=== PATIENT | female | born 1990 | race Two or more races ===

== ENCOUNTER 2024-01-20 16:31 | Inpatient (IN) | payer MEDICAID, OTHER ==
[~2024-01-20] VITALS: Ht 170.2 cm; Wt 192.5 kg
[2024-01-20 17:10] VITALS: PULSE 101; RESP 29; O2SAT 95
[2024-01-20] MEDS: methylPREDNISolone SOD SUCC 125 MG/2 ML VL IV ONE (17:26)
[2024-01-20] MEDS: cefTRIAXone 1GM/50ML D5W 50 ML IV ONE (17:27)
[2024-01-20 17:30] LABS: Hemoglobin 15.9 g/dL (12.2-16.2)
[2024-01-20] MEDS: ALBUTEROL SULF 2.5 MG/0.5ML(0.5%) NEB SOLN NEB ONE (17:30)
[2024-01-20] MEDS: IPRATROPIUM BROM 0.5 MG/2.5ML INH SOL NEB ONE (17:30)
[2024-01-20 17:32] LABS: Hematocrit 51.3 % (36.0-46.0); Mean Corpuscular Hemoglobin 25.3 pg (28.0-32.0); Mean Corpuscular Hgb Conc. 30.9 g/dL (32.0-36.0); Mean Corpuscular Volume 81.6 fL (80.0-100.0); Red Blood Cells 6.28 10^6/uL (4.0-5.20); Red Cell Distribution Width 16.6 % (11.8-14.3)
[2024-01-20 17:56] LABS: Chloride 99 mmol/L (98-107); Potassium 4.8 mmol/L (3.5-5.1); Sodium 130 mmol/L (136-145)
[2024-01-20 17:58] LABS: Anion Gap 15 (5-15); Carbon Dioxide 16 mmol/L (20-30)
[2024-01-20 17:59] LABS: Calcium 8.7 mg/dL (8.5-10.1)
[2024-01-20 18:03] LABS: Glucose 229 mg/dL (74-106)
[2024-01-20 18:04] LABS: Alkaline Phosphatase 128 U/L (46-116); BUN/Creatinine Ratio 24.3 (10.0-20.0); Blood Urea Nitrogen 37 mg/dL (9-23); Magnesium 2.2 mg/dL (1.6-2.6)
[2024-01-20 18:05] LABS: Alanine Aminotransferase 771 U/L (7-40); Albumin 3.8 g/dL (3.2-4.8)
[2024-01-20 18:06] LABS: Aspartate Aminotransferase 2462 U/L (13-40); Bilirubin, Total 4.7 mg/dL (0.2-1.0); Total Protein 7.4 g/dL (5.7-8.2)
[2024-01-20 18:22] LABS: White Blood Cell 38.9 10^3/uL (4.4-10.8)
[2024-01-20 18:24] LABS: Basophils % (manual) 0 (0.0-2.0); Blast Cells 0; Eosinophils % (manual) 0 (0-7); Promyelocytes % 0; Reactive Lymphocytes 0
[2024-01-20 18:32] LABS: Lactic Acid w/Reflex 4.2 mmol/L (0.4-2.0)
[2024-01-20] MEDS: FUROSEMIDE 40 MG/4 ML VIAL IV ONE (18:48)
[2024-01-20] MEDS: SODIUM CHLORIDE 0.9% 500 ML IV ONE (18:48)
[2024-01-20 19:30] VITALS: PULSE 93; RESP 26; O2SAT 94
[2024-01-20] MEDS: AZITHROMYCIN 250 MG TAB PO ONE (19:32)
[2024-01-20] MEDS: ASPirin 325 MG TAB PO ONE (19:32)
[2024-01-20 19:51] LABS: Base Excess -5.1 mmol/L (-2.0-2.0)
[2024-01-20 20:53] LABS: Lymphocytes % (manual) 17 (10.0-50.0); Metamyelocytes % 3; Monocytes % (manual) 3 (0-12); Myelocytes % 4
[2024-01-20 20:54] LABS: Anisocytosis Slight; Band Neutrophils % (manual) 11; Platelet Estimate Decreased
[2024-01-20 20:55] LABS: Large Platelets FEW
[2024-01-20] MEDS ORDERED: MORPHINE SULFATE INJ 2 MG/ml SYRG IV PRN ×2 (21:00)
[2024-01-20] MEDS ORDERED: ACETAMINOPHEN 325 MG TAB PO PRN (21:00)
[2024-01-20] MEDS ORDERED: ONDANSETRON HCL 4 MG/2 ML VIAL IV PRN (21:00)
[2024-01-20] MEDS ORDERED: DEXTROSE (50%) 50ML SYRG IV PRN (21:00)
[2024-01-20] MEDS ORDERED: NITROGLYCERIN 0.4 MG SL TAB SL PRN (21:00)
[2024-01-20 22:00] VITALS: BP 155/110; PULSE 90; RESP 22; TEMP 97.4; O2SAT 95
[2024-01-20 22:40] VITALS: BP 149/87; PULSE 93; O2SAT 94
[2024-01-20 23:13] LABS: Urine Bacteria FEW /hpf (None Seen); Urine Blood 2+ /uL (Negative); Urine Budding Yeast FEW /hpf (None Seen); Urine Clarity Turbid (Clear); Urine Color Dark-Yellow (Yellow); Urine Hyaline Cast MANY /lpf (0 - 2); Urine Mucus FEW (None Seen); Urine Protein, UAD 3+ (Negative); Urine Specific Gravity 1.021 (1.001-1.035); Urine Urobilinogen 4 mg/dL (Negative); Urine WBC 11 /hpf (0 - 5); Urine pH 5.5 (5.0-9.0)
[2024-01-20] MEDS: methylPREDNISolone SOD SUCC 40 MG/ML VL IV SCH (23:13)
[2024-01-20] MEDS: ACCU-CHEK COMFORT CURVE STRIP VI SCH (23:14)
[2024-01-20] MEDS: InsuLIN REG 1unit/0.01ml Soln (100units/ml) SC SCH (23:15)
[2024-01-20] MEDS: SODIUM CHLORIDE 0.9% 1,000 ML IV SCH (23:15)
[2024-01-21] VITALS (10 sets, daily range): BP systolic 118–135; BP diastolic 76–82; PULSE 73–105; RESP 16–20; O2SAT 92–97
[2024-01-21] MEDS: IPRATROPIUM BROM 0.5 MG/2.5ML INH SOL NEB SCH (00:38)
[2024-01-21] MEDS: ALBUTEROL SULF 2.5 MG/0.5ML(0.5%) NEB SOLN NEB SCH (00:38)
[2024-01-21 06:34] LABS: Hematocrit 49.3 % (36.0-46.0); Red Cell Distribution Width 16.4 % (11.8-14.3)
[2024-01-21 06:36] LABS: Hemoglobin 15.8 g/dL (12.2-16.2); Mean Corpuscular Hemoglobin 25.8 pg (28.0-32.0); Mean Corpuscular Volume 80.7 fL (80.0-100.0); Red Blood Cells 6.11 10^6/uL (4.0-5.20)
[2024-01-21 06:49] LABS: Alanine Aminotransferase 552 U/L (7-40); Alkaline Phosphatase 115 U/L (46-116); Anion Gap 9 (5-15); BUN/Creatinine Ratio 30.1 (10.0-20.0); Blood Urea Nitrogen 34 mg/dL (9-23); Calcium 8.5 mg/dL (8.5-10.1); Carbon Dioxide 24 mmol/L (20-30); Chloride 100 mmol/L (98-107); Glucose 280 mg/dL (74-106); LDL Cholesterol 103 mg/dL (< 100); Potassium 4.8 mmol/L (3.5-5.1); Sodium 133 mmol/L (136-145); Triglycerides 361 mg/dL (< 150)
[2024-01-21 06:50] LABS: Albumin 3.6 g/dL (3.2-4.8); Aspartate Aminotransferase > 1000 U/L (13-40); Bilirubin, Total 2.7 mg/dL (0.2-1.0); Cholesterol 178 mg/dL (< 200); HDL Cholesterol 11 mg/dL (40-59)
[2024-01-21] MEDS: FUROSEMIDE 20 MG/2 ML VIAL IV SCH (06:54)
[2024-01-21 07:43] LABS: White Blood Cell 39.5 10^3/uL (4.4-10.8)
[2024-01-21 07:45] LABS: Basophils % (manual) 0 (0.0-2.0); Blast Cells 0; Eosinophils % (manual) 0 (0-7); Metamyelocytes % 0; Myelocytes % 0; Promyelocytes % 0; Reactive Lymphocytes 0
[2024-01-21] MEDS ORDERED: hydrALAZINE HCL 20 MG/ML VL IV PRN (08:30)
[2024-01-21 08:36] LABS: Band Neutrophils % (manual) 17; Large Platelets FEW; Lymphocytes % (manual) 9 (10.0-50.0); Monocytes % (manual) 5 (0-12)
[2024-01-21 08:38] LABS: Platelet Estimate Decrea
[2024-01-21] MEDS: ENOXAPARIN SOD 40 MG/0.4 ML SYRINGE SC SCH (10:00)
[2024-01-21] MEDS: PANTOPRAZOLE 40 MG/10 ML VIAL INJ IV SCH (11:08)
[2024-01-21] MEDS: ASPirin-EC 81 mg tab PO SCH (11:08)
[2024-01-21] MEDS: IOHEXOL 350 MG/ML 100ML IJ ONE (11:23)
[2024-01-21 13:47] LABS: COVID19 ANTIGEN SOFIA FIA NEGATIVE (NEGATIVE)
[2024-01-21 13:48] LABS: Rapid Influenza A Negative (Negative); Rapid Influenza B Negative (Negative)
[2024-01-21 14:08] LABS: INR 1.47 (0.9-1.15); Partial Thromboplastin Time 23.8 SEC (24.5-34.5); Prothrombin Time 15.1 sec (9.3-11.8)
[2024-01-21] MEDS: HEPARIN DRIP/D5W 100UNITS/ML 250 ML IV SCH ×2 (14:44→23:34)
[2024-01-21] MEDS: DOXYCYCLINE 100MG/250ML 250 ML IV SCH (14:59)
[2024-01-21] MEDS ORDERED: cefTRIAXone 1GM/50ML D5W 50 ML IV SCH (18:00)
[2024-01-21] MEDS ORDERED: AZITHROMYCIN 500MG/ 250ML 250 ML IV SCH (20:00)
[2024-01-21 21:27] LABS: INR 1.43 (0.9-1.15); Partial Thromboplastin Time 29.1 SEC (24.5-34.5); Prothrombin Time 14.8 sec (9.3-11.8)
[2024-01-21] MEDS ORDERED: ATORVASTATIN 20 MG TAB PO SCH (22:00)
[2024-01-21] MEDS: NYSTATIN TOPICAL POWDER 15GM TOP SCH (22:26)
[2024-01-21 22:42] LABS: Base Excess -1.3 mmol/L (-2.0-2.0)
[2024-01-21] MEDS: MEROPENEM 1GM IVPB 50 ML IV SCH (23:13)
[2024-01-21] MEDS: HEPARIN SODIUM (PORCINE) 5000 UNITS/ML 1ML VIAL IV ONE (23:33)
[2024-01-22] VITALS (37 sets, daily range): BP systolic 111–156; BP diastolic 64–106; PULSE 61–89; RESP 10–22; TEMP 97.7–99.6; O2SAT 89–98
[2024-01-22] MEDS: DOXYCYCLINE 100MG/250ML 250 ML IV SCH (02:21)
[2024-01-22] MEDS ORDERED: MEROPENEM 1GM IVPB 50 ML IV SCH (06:00)
[2024-01-22 06:29] LABS: INR 1.4 (0.9-1.15); Partial Thromboplastin Time 36.2 SEC (24.5-34.5); Prothrombin Time 14.5 sec (9.3-11.8)
[2024-01-22] MEDS: MEROPENEM 1GM IVPB 50 ML IV SCH (06:35)
[2024-01-22 08:21] LABS: Hematocrit 45.8 % (36.0-46.0); Hemoglobin 14.2 g/dL (12.2-16.2); Mean Corpuscular Hemoglobin 25.7 pg (28.0-32.0); Mean Corpuscular Hgb Conc. 31.1 g/dL (32.0-36.0); Mean Corpuscular Volume 82.8 fL (80.0-100.0); Red Blood Cells 5.54 10^6/uL (4.0-5.20); Red Cell Distribution Width 17.3 % (11.8-14.3)
[2024-01-22] MEDS: methylPREDNISolone SOD SUCC 40 MG/ML VL IV SCH (08:25)
[2024-01-22 08:26] LABS: Anion Gap 5 (5-15); Carbon Dioxide 28 mmol/L (20-30); Chloride 99 mmol/L (98-107); Potassium 4.8 mmol/L (3.5-5.1); Sodium 132 mmol/L (136-145)
[2024-01-22 08:27] LABS: Calcium 8.6 mg/dL (8.5-10.1)
[2024-01-22 08:32] LABS: BUN/Creatinine Ratio 22.7 (10.0-20.0); Blood Urea Nitrogen 17 mg/dL (9-23); Glucose 321 mg/dL (74-106)
[2024-01-22 08:43] LABS: White Blood Cell 34.6 10^3/uL (4.4-10.8)
[2024-01-22 08:44] LABS: Basophils % (manual) 0 (0.0-2.0); Blast Cells 0; Eosinophils % (manual) 0 (0-7); Metamyelocytes % 0; Myelocytes % 0; Promyelocytes % 0; Reactive Lymphocytes 0
[2024-01-22 09:03] LABS: Hepatitis B Surface Antigen Negative (Negative)
[2024-01-22 09:06] LABS: Band Neutrophils % (manual) 11; Lymphocytes % (manual) 10 (10.0-50.0); Monocytes % (manual) 7 (0-12)
[2024-01-22 09:07] LABS: Platelet Estimate Decreased
[2024-01-22 09:22] LABS: Hepatitis A Ab IgM Negative
[2024-01-22 09:24] LABS: Hepatitis B Core IgM Negative; Hepatitis C Antibody Negative (Negative)
[2024-01-22] MEDS ORDERED: DEXTROSE (50%) 50ML SYRG IV PRN (09:30)
[2024-01-22] MEDS: ACCU-CHEK COMFORT CURVE STRIP VI SCH (11:09)
[2024-01-22] MEDS: InsuLIN REG 1unit/0.01ml Soln (100units/ml) SC SCH (11:38)
[2024-01-22 13:47] LABS: INR 1.3 (0.9-1.15); Partial Thromboplastin Time 44.3 SEC (24.5-34.5); Prothrombin Time 13.5 sec (9.3-11.8)
[2024-01-22] MEDS: HEPARIN DRIP/D5W 100UNITS/ML 250 ML IV SCH ×2 (14:39→16:15)
[2024-01-22] MEDS: ENOXAPARIN SOD 150 MG/1 ML SYRINGE SC SCH (22:06)
[2024-01-23] VITALS (30 sets, daily range): BP systolic 120–153; BP diastolic 46–104; PULSE 59–99; RESP 14–18; TEMP 97.4–98.8; O2SAT 92–98
[2024-01-23 09:02] LABS: Red Cell Distribution Width 16.4 % (11.8-14.3)
[2024-01-23 09:03] LABS: Hematocrit 44.9 % (36.0-46.0); Hemoglobin 14.2 g/dL (12.2-16.2); Mean Corpuscular Hemoglobin 25.8 pg (28.0-32.0); Mean Corpuscular Hgb Conc. 31.6 g/dL (32.0-36.0); Mean Corpuscular Volume 81.6 fL (80.0-100.0); White Blood Cell 25.2 10^3/uL (4.4-10.8)
[2024-01-23 09:10] LABS: Basophils % (manual) 0 (0.0-2.0); Blast Cells 0; Eosinophils % (manual) 0 (0-7); Metamyelocytes % 0; Promyelocytes % 0; Reactive Lymphocytes 0
[2024-01-23 09:50] LABS: Band Neutrophils % (manual) 2; Lymphocytes % (manual) 10 (10.0-50.0); Monocytes % (manual) 4 (0-12); Myelocytes % 1; Platelet Estimate Decreased
[2024-01-23 09:51] LABS: Anisocytosis Slight
[2024-01-23 10:26] LABS: Chloride 99 mmol/L (98-107); Sodium 133 mmol/L (136-145)
[2024-01-23 10:28] LABS: Anion Gap 3 (5-15); Carbon Dioxide 31 mmol/L (20-30)
[2024-01-23 10:29] LABS: Calcium 8.9 mg/dL (8.5-10.1)
[2024-01-23 10:33] LABS: Glucose 237 mg/dL (74-106)
[2024-01-23 10:47] LABS: BUN/Creatinine Ratio 23.8 (10.0-20.0); Blood Urea Nitrogen 15 mg/dL (9-23); Potassium 4.6 mmol/L (3.5-5.1)
[2024-01-23] MEDS: hydrALAZINE HCL 20 MG/ML VL ONE (22:10)
[2024-01-24] VITALS (26 sets, daily range): BP systolic 92–143; BP diastolic 43–94; PULSE 58–87; RESP 13–21; TEMP 97.4–98.4; O2SAT 92–100
[2024-01-24 06:39] LABS: Eosinophils # (auto) 0.3 10 ^3/uL (0-0.8); Lymphocytes % (auto) 17.7 % (10.0-50.0); Nucleated Red Blood Cells % 0.2 %
[2024-01-24 06:43] LABS: Basophils # (auto) 0 10 ^3/uL (0-0.2); Basophils % (auto) 0.2 % (0.0-2.0); Eosinophils % (auto) 1.5 % (0.0-7.0); Hematocrit 45.8 % (36.0-46.0); Hemoglobin 14.5 g/dL (12.2-16.2); Mean Corpuscular Hgb Conc. 31.7 g/dL (32.0-36.0); Mean Corpuscular Volume 81.8 fL (80.0-100.0); Monocytes # (auto) 1.2 10 ^3/uL (0-1.3); Monocytes % (auto) 6.8 % (0.0-12.0); Neutrophils # (auto) 12.6 10 ^3/uL (1.6-8.6); Neutrophils % (auto) 73.8 % (37.0-80.0); Red Cell Distribution Width 16.4 % (11.8-14.3); White Blood Cell 17.1 10^3/uL (4.4-10.8)
[2024-01-24 06:51] LABS: Anion Gap 4 (5-15); Carbon Dioxide 34 mmol/L (20-30); Chloride 99 mmol/L (98-107); Sodium 137 mmol/L (136-145)
[2024-01-24 06:52] LABS: Calcium 8.6 mg/dL (8.5-10.1)
[2024-01-24 06:57] LABS: BUN/Creatinine Ratio 14.8 (10.0-20.0); Blood Urea Nitrogen 9 mg/dL (9-23); Glucose 144 mg/dL (74-106)
[2024-01-25] VITALS (21 sets, daily range): BP systolic 104–153; BP diastolic 53–78; PULSE 63–103; RESP 13–30; TEMP 97.7–99; O2SAT 91–100
[2024-01-25 07:30] LABS: Chloride 104 mmol/L (98-107); Potassium 3.3 mmol/L (3.5-5.1)
[2024-01-25 07:31] LABS: Anion Gap 7 (5-15); Carbon Dioxide 20 mmol/L (20-30)
[2024-01-25 07:48] LABS: Basophils # (auto) 0.1 10 ^3/uL (0-0.2); Basophils % (auto) 0.4 % (0.0-2.0); Eosinophils # (auto) 0.5 10 ^3/uL (0-0.8)
[2024-01-25 07:49] LABS: BUN/Creatinine Ratio 11.4 (10.0-20.0); Blood Urea Nitrogen < 5 mg/dL (9-23); Sodium 131 mmol/L (136-145)
[2024-01-25 07:50] LABS: Glucose 505 mg/dL (74-106)
[2024-01-25 07:50] LABS: Hematocrit 43.9 % (36.0-46.0); Lymphocytes # (auto) 2.5 10 ^3/uL (0.4-5.4); Lymphocytes % (auto) 18.7 % (10.0-50.0); Mean Corpuscular Hemoglobin 26.1 pg (28.0-32.0); Mean Corpuscular Hgb Conc. 31.8 g/dL (32.0-36.0); Monocytes # (auto) 0.6 10 ^3/uL (0-1.3); Monocytes % (auto) 4.9 % (0.0-12.0); Neutrophils # (auto) 9.4 10 ^3/uL (1.6-8.6); Nucleated Red Blood Cells % 0.1 %; Red Blood Cells 5.36 10^6/uL (4.0-5.20); Red Cell Distribution Width 16.3 % (11.8-14.3); White Blood Cell 13.1 10^3/uL (4.4-10.8)
[2024-01-25 15:11] LABS: Alanine Aminotransferase 92 U/L (7-40); Albumin 3.5 g/dL (3.2-4.8); Alkaline Phosphatase 60 U/L (46-116); Anion Gap 3 (5-15); Aspartate Aminotransferase 39 U/L (13-40); BUN/Creatinine Ratio 17.3 (10.0-20.0); Bilirubin, Total 1.5 mg/dL (0.2-1.0); Blood Urea Nitrogen 9 mg/dL (9-23); Calcium 8.8 mg/dL (8.7-10.4); Carbon Dioxide 35 mmol/L (20-30); Chloride 97 mmol/L (98-107); Glucose 165 mg/dL (74-106); Potassium 4.6 mmol/L (3.5-5.1); Sodium 135 mmol/L (136-145); Total Protein 6.5 g/dL (5.7-8.2)
[2024-01-26] VITALS (18 sets, daily range): BP systolic 106–131; BP diastolic 59–77; PULSE 69–87; RESP 16–22; TEMP 97.6–98.4; O2SAT 92–100
[2024-01-26 06:15] LABS: Basophils # (auto) 0.1 10 ^3/uL (0-0.2); Eosinophils # (auto) 1.1 10 ^3/uL (0-0.8); Hemoglobin 14.3 g/dL (12.2-16.2); Lymphocytes # (auto) 2.4 10 ^3/uL (0.4-5.4); Monocytes # (auto) 0.6 10 ^3/uL (0-1.3); Nucleated Red Blood Cells % 0.3 %
[2024-01-26 06:17] LABS: Basophils % (auto) 0.6 % (0.0-2.0); Eosinophils % (auto) 6.6 % (0.0-7.0); Hematocrit 44.4 % (36.0-46.0); Lymphocytes % (auto) 14.6 % (10.0-50.0); Mean Corpuscular Hemoglobin 26.8 pg (28.0-32.0); Mean Corpuscular Hgb Conc. 32.2 g/dL (32.0-36.0); Mean Corpuscular Volume 83.2 fL (80.0-100.0); Monocytes % (auto) 3.9 % (0.0-12.0); Neutrophils # (auto) 12.2 10 ^3/uL (1.6-8.6); Neutrophils % (auto) 74.3 % (37.0-80.0); Red Blood Cells 5.34 10^6/uL (4.0-5.20); Red Cell Distribution Width 17.1 % (11.8-14.3); White Blood Cell 16.4 10^3/uL (4.4-10.8)
[2024-01-26 06:23] LABS: Anion Gap 6 (5-15); Carbon Dioxide 32 mmol/L (20-30); Chloride 97 mmol/L (98-107); Sodium 135 mmol/L (136-145)
[2024-01-26 06:30] LABS: Glucose 124 mg/dL (74-106)
[2024-01-26 06:38] LABS: BUN/Creatinine Ratio 10.9 (10.0-20.0); Blood Urea Nitrogen 6 mg/dL (9-23)
[2024-01-26 07:23] LABS: Large Platelets FEW; Platelet Estimate Adequa
[2024-01-26] MEDS: DOCUSATE SOD 100 MG CAP PO PRN (21:40)
[2024-01-27] VITALS (17 sets, daily range): BP systolic 102–129; BP diastolic 50–76; PULSE 70–108; RESP 16–22; TEMP 97.5–98.6; O2SAT 84–99
[2024-01-27 06:45] LABS: Basophils # (auto) 0.1 10 ^3/uL (0-0.2); Basophils % (auto) 0.3 % (0.0-2.0); Nucleated Red Blood Cells % 0.1 %; Red Cell Distribution Width 16.7 % (11.8-14.3); White Blood Cell 16.2 10^3/uL (4.4-10.8)
[2024-01-27 06:47] LABS: Eosinophils # (auto) 0.7 10 ^3/uL (0-0.8); Eosinophils % (auto) 4.2 % (0.0-7.0); Hematocrit 43.9 % (36.0-46.0); Lymphocytes # (auto) 2.4 10 ^3/uL (0.4-5.4); Lymphocytes % (auto) 14.8 % (10.0-50.0); Mean Corpuscular Hemoglobin 26.3 pg (28.0-32.0); Mean Corpuscular Hgb Conc. 31.8 g/dL (32.0-36.0); Mean Corpuscular Volume 82.5 fL (80.0-100.0); Monocytes # (auto) 0.8 10 ^3/uL (0-1.3); Monocytes % (auto) 5.1 % (0.0-12.0); Neutrophils # (auto) 12.2 10 ^3/uL (1.6-8.6); Neutrophils % (auto) 75.6 % (37.0-80.0); Red Blood Cells 5.32 10^6/uL (4.0-5.20)
[2024-01-27 07:03] LABS: Alanine Aminotransferase 51 U/L (7-40); Anion Gap 3 (5-15); Aspartate Aminotransferase 34 U/L (13-40); Calcium 8.8 mg/dL (8.7-10.4); Carbon Dioxide 34 mmol/L (20-30); Chloride 99 mmol/L (98-107); Glucose 120 mg/dL (74-106); Potassium 4.4 mmol/L (3.5-5.1); Sodium 136 mmol/L (136-145)
[2024-01-27 07:05] LABS: BUN/Creatinine Ratio 11.4 (10.0-20.0); Blood Urea Nitrogen < 5 mg/dL (9-23)
[2024-01-27] MEDS: APIXABAN 5 MG TAB PO SCH (21:59)
[2024-01-27] MEDS: ATORVASTATIN 20 MG TAB PO SCH (22:00)
[2024-01-28] VITALS (14 sets, daily range): BP systolic 100–145; BP diastolic 40–71; PULSE 63–97; RESP 17–22; TEMP 98.2–98.3; O2SAT 91–98
[2024-01-28 06:17] LABS: Basophils # (auto) 0.1 10 ^3/uL (0-0.2); Eosinophils # (auto) 0.6 10 ^3/uL (0-0.8); Eosinophils % (auto) 3.3 % (0.0-7.0); Monocytes # (auto) 0.8 10 ^3/uL (0-1.3); Neutrophils # (auto) 12.9 10 ^3/uL (1.6-8.6)
[2024-01-28 06:21] LABS: Basophils % (auto) 0.6 % (0.0-2.0); Hematocrit 44.3 % (36.0-46.0); Hemoglobin 13.6 g/dL (12.2-16.2); Lymphocytes # (auto) 2.3 10 ^3/uL (0.4-5.4); Lymphocytes % (auto) 13.6 % (10.0-50.0); Mean Corpuscular Hemoglobin 25.9 pg (28.0-32.0); Mean Corpuscular Hgb Conc. 30.8 g/dL (32.0-36.0); Mean Corpuscular Volume 84.1 fL (80.0-100.0); Monocytes % (auto) 4.9 % (0.0-12.0); Neutrophils % (auto) 77.6 % (37.0-80.0); Red Blood Cells 5.27 10^6/uL (4.0-5.20); Red Cell Distribution Width 16.5 % (11.8-14.3); White Blood Cell 16.7 10^3/uL (4.4-10.8)
[2024-01-28 06:28] LABS: Chloride 100 mmol/L (98-107); Sodium 134 mmol/L (136-145)
[2024-01-28 06:29] LABS: Anion Gap 4 (5-15); Calcium 8.9 mg/dL (8.7-10.4); Carbon Dioxide 30 mmol/L (20-30)
[2024-01-28 06:34] LABS: Alanine Aminotransferase 38 U/L (7-40); Aspartate Aminotransferase 33 U/L (13-40); Glucose 135 mg/dL (74-106)
[2024-01-28 06:38] LABS: BUN/Creatinine Ratio 10.9 (10.0-20.0); Blood Urea Nitrogen < 5 mg/dL (9-23)
[2024-01-28] MEDS: PANTOPRAZOLE 40 MG TAB PO SCH (08:48)
[2024-01-28] MEDS: FUROSEMIDE 20 MG TAB PO ONE (10:03)
[2024-01-28] MEDS ORDERED: IPRATROPIUM BROM 0.5 MG/2.5ML INH SOL NEB PRN (11:45)
[2024-01-28] MEDS ORDERED: ALBUTEROL SULF 2.5 MG/0.5ML(0.5%) NEB SOLN NEB PRN (11:45)
[2024-01-28 17:11] LABS: Base Excess 1.6 mmol/L (-2.0-2.0)
[2024-01-28] MEDS: DOXYCYCLINE 100 MG TAB/CAP PO SCH (21:07)
[2024-01-29] VITALS (8 sets, daily range): BP systolic 98–137; BP diastolic 49–94; PULSE 74–94; RESP 17–20; TEMP 97.8–98.6; O2SAT 94–98
[2024-01-29] MEDS: cefTRIAXone 1GM/50ML D5W 50 ML IV SCH (09:19)
[2024-01-29] MEDS ORDERED: APIX5TAB PO (14:44)
[2024-02-03] MEDS ORDERED: APIXABAN 5 MG TAB PO SCH (22:00)
== END 2024-01-29 19:35 | disposition home or self-care (01) | DRG 720 ==
LOC: ER 16:31 → EDBD 16:31 → TELE 20:57 → DOU IN ICU 20:57 → UNDODISIN 01-21 20:45 → DOU IN ICU 01-22 04:08 → WEST WING 01-25 16:18 → TELE-WESTW 01-25 23:23
PROVIDERS: ADMIT Nurse Practitioner Acute Care; ATTEND Nurse Practitioner Acute Care
PROC: 5A09357 Assistance with Respiratory Ventilation, Less than 24 Consecutive Hours, Continuous Positive Airway Pressure (ICD-10-PCS; principal; 2024-01-20)
PROC: 5A09357 Assistance with Respiratory Ventilation, Less than 24 Consecutive Hours, Continuous Positive Airway Pressure (ICD-10-PCS; 2024-01-21)
PROC: 5A09357 Assistance with Respiratory Ventilation, Less than 24 Consecutive Hours, Continuous Positive Airway Pressure (ICD-10-PCS; 2024-01-22)
PROC: 5A0935A Assistance with Respiratory Ventilation, Less than 24 Consecutive Hours, High Flow/Velocity Cannula (ICD-10-PCS; 2024-01-22)
PROC: 05HF33Z Insertion of Infusion Device into Left Cephalic Vein, Percutaneous Approach (ICD-10-PCS; 2024-01-22)
PROC: B54NZZA Ultrasonography of Left Upper Extremity Veins, Guidance (ICD-10-PCS; 2024-01-22)
PROC: 5A09357 Assistance with Respiratory Ventilation, Less than 24 Consecutive Hours, Continuous Positive Airway Pressure (ICD-10-PCS; 2024-01-23)
PROC: 5A0935A Assistance with Respiratory Ventilation, Less than 24 Consecutive Hours, High Flow/Velocity Cannula (ICD-10-PCS; 2024-01-23)
PROC: 5A09357 Assistance with Respiratory Ventilation, Less than 24 Consecutive Hours, Continuous Positive Airway Pressure (ICD-10-PCS; 2024-01-24)
PROC: 5A0935A Assistance with Respiratory Ventilation, Less than 24 Consecutive Hours, High Flow/Velocity Cannula (ICD-10-PCS; 2024-01-24)
DX: A41.9 Sepsis, unspecified organism (principal); J96.01 Acute respiratory failure with hypoxia; I26.09 Other pulmonary embolism with acute cor pulmonale; I50.41 Acute combined systolic (congestive) and diastolic (congestive) heart failure; D69.6 Thrombocytopenia, unspecified; I82.402 Acute embolism and thrombosis of unspecified deep veins of left lower extremity; E87.20 Acidosis, unspecified; J15.69 Pneumonia due to other Gram-negative bacteria; E87.1 Hypo-osmolality and hyponatremia; I21.A1 Myocardial infarction type 2; I27.29 Other secondary pulmonary hypertension; Z20.822 Contact with and (suspected) exposure to COVID-19; J15.9 Unspecified bacterial pneumonia; E66.01 Morbid (severe) obesity due to excess calories; R65.20 Severe sepsis without septic shock; K80.20 Calculus of gallbladder without cholecystitis without obstruction; E78.5 Hyperlipidemia, unspecified; J81.1 Chronic pulmonary edema; N17.9 Acute kidney failure, unspecified; E11.9 Type 2 diabetes mellitus without complications; Z68.44 Body mass index [BMI] 60.0-69.9, adult; E11.22 Type 2 diabetes mellitus with diabetic chronic kidney disease; N18.9 Chronic kidney disease, unspecified
CPT/HCPCS: 36415; 36600; 71045; 71275; 76705; 80048; 80053; 80061; 80074; 81001; 82805; 82962; 83036; 83605; 83735; 83880; 84443; 84450; 84460; 84484; 84702; 85007; 85025; 85027; 85049; 85379; 85610; 85730; 87040; 87081; 87086; 87426; 87804; 93306; 93970; 94640; 94660; 97110; 97116; 97163; 97530; 99291; C9113; G0378; J1815; J2185; J3490